=== PATIENT | male | born 1975 | race Caucasian/White ===

== ENCOUNTER → 2016-12-03 | Outpatient (CLI) | payer BC ==
[~2016-12-03] MED LIST: AZIT500T PO; IBUP-1050 PO
--- NOTE | 2016-12-03 12:29 | DIAGNOSTIC IMAGING REPORT ---
RIGHT ANKLE MIN 3 VIEWS ROUTINE CLINICAL HISTORY: Right ankle pain following twisting injury. COMPARISON: None FINDINGS: Alignment of the right ankle is anatomic. There is moderate anterolateral ankle soft tissue swelling. There is no acute fracture. A 1.9 x 0.5 cm calcific density projecting over the proximal plantar fascia is likely chronic. Talar dome is intact. IMPRESSION: 1. No acute fracture or dislocation of the right ankle. 2. Moderate anterolateral ankle soft tissue swelling. 3. 1.9 x 0.5 cm calcific density projecting of the proximal plantar fascia which is chronic. Electronically signed by: Jeremías Pichardo M.D. 12/03/2016 12:27 PM Dictated Date/Time: 12/03/2016 12:26 PM
== END | disposition home or self-care (01) ==
LOC: C.RAD1850 11:49
PROVIDERS: ATTEND Family Medicine
DX: S99.911A Unspecified injury of right ankle, initial encounter (principal); X58.XXXA Exposure to other specified factors, initial encounter; M85.871 Other specified disorders of bone density and structure, right ankle and foot

== ENCOUNTER → 2017-12-29 | Outpatient (CLI) | payer BC ==
--- NOTE | 2017-12-29 09:34 | DIAGNOSTIC IMAGING REPORT ---
ABDOMEN LIMITED (US) HISTORY: Pain. Nodule. ABD PAIN. COMPARISON: None FINDINGS: Ultrasonic evaluation of the abdomen at the site of clinically palpable nodularity comparison. This of a moderately echogenic well-circumscribed mass measuring 3.5 x 1.3 cm. This is consistent with a lipoma. IMPRESSION: Palpable nodularity density appears to represent a 3.5 x 1.3 cm benign lipoma No other mass collection or hernia is identified. Electronically signed by: Jeremiah Dwyer M.D. 12/29/2017 9:32 AM Dictated Date/Time: 12/29/2017 9:30 AM
== END | disposition home or self-care (01) ==
LOC: C.ULTRBC 08:58
PROVIDERS: ATTEND Family Medicine
DX: R10.9 Unspecified abdominal pain (principal); D17.9 Benign lipomatous neoplasm, unspecified

== ENCOUNTER 2018-01-02 14:09 | Emergency (ER) | payer BC ==
[~2018-01-02] VITALS: Ht 182.9 cm; Wt 114.0 kg
[2018-01-02 14:16] VITALS: TEMP 37; Ht 182.9 cm; Wt 114.0 kg
[2018-01-02] MEDS ORDERED: MULT-1027 (14:48)
[2018-01-02] MEDS ORDERED: OPTIRAY 320 IV PRN (15:00)
[2018-01-02 15:09] LABS: BASO % 0.3 %; BASO ABS # 0.02 K/uL (0-0.2); EOS % 2.7 %; EOS ABS # 0.16 K/uL (0-0.5); HEMATOCRIT 42.4 % (42-52); HEMOGLOBIN 14.6 g/dL (14.0-18.0); IG# 0.01 K/uL (0.00-0.02); LYMPH % 15.5 %; LYMPH ABS # 0.93 K/uL (1.2-3.4); MEAN CELL VOLUME 86.4 fL (80-100); MEAN CORPUSCULAR HEMOGLOBIN 29.7 pg (25-34); MEAN CORPUSCULAR HGB CONC 34.4 g/dl (32-36); MONO % 6.8 %; MONO ABS # 0.41 K/uL (0.11-0.59); NEUT % 74.5 %; NEUT ABS # 4.47 K/uL (1.4-6.5); PLATELET COUNT 175 K/uL (130-400); RED CELL DISTRIBUTION WIDTH CV 12.5 % (11.5-14.5); RED CELL DISTRIBUTION WIDTH SD 39.9 fL (36.4-46.3)
[2018-01-02 15:27] LABS: ALBUMIN 4.2 gm/dl (3.4-5.0); CALCIUM 9.1 mg/dl (8.5-10.1); CREATININE 1.04 mg/dl (0.60-1.40); POTASSIUM 3.7 mmol/L (3.5-5.1)
[2018-01-02 15:30] LABS: TOTAL PROTEIN 7.3 gm/dl (6.4-8.2)
--- NOTE | 2018-01-02 18:01 | DIAGNOSTIC IMAGING REPORT ---
ABDOMEN AND PELVIS CT WITH IV AND ORAL CONTRAST CT DOSE: 841.84 mGy.cm HISTORY: Acute right-sided abdominal pain right sided pain eval for colitis/appe TECHNIQUE: Multiaxial CT images of the abdomen and pelvis were performed following the use of intravenous and oral contrast. A dose lowering technique was utilized adhering to the principles of ALARA. COMPARISON STUDY: CT abdomen and pelvis 09/08/2012. FINDINGS: 5 mm pleural-based nodule of the posterior basal segment left lower lobe is noted with mild retraction of the subpleural fat. Minimal subsegmental bibasilar atelectasis. No pneumatosis or pneumoperitoneum. Imaged inferior cardiac chambers are unremarkable. Layering increased attenuation within the gallbladder lumen is noted without CT evidence of acute cholecystitis. Spleen is mildly enlarged, 15 cm. Liver, pancreas and adrenal glands are within normal limits. 7 mm low attenuating lesion of the interpolar left kidney suggests renal cyst. No renal calculi or obstructive uropathy. Ureters and prostate are unremarkable. Urinary bladder is within normal limits. Aorta is unremarkable. No bulky adenopathy. No bowel obstruction or focal bowel wall thickening. The appendix appears normal. Soft tissues are within normal limits. Bones appear intact. Multilevel endplate spurring of the thoracic spine. IMPRESSION: 1. No acute intra-abdominal or intrapelvic abnormality identified. Normal appendix. 2. Layering hyperattenuating foci within the gallbladder lumen suggest gallbladder sludge or cholelithiasis. No CT evidence of acute cholecystitis. 3. Mild splenomegaly. Electronically signed by: Lucien Borges M.D. 01/02/2018 5:59 PM Dictated Date/Time: 01/02/2018 5:55 PM
--- NOTE | 2018-01-02 18:16 | EMERGENCY ROOM VISIT NOTE ---
History Report prepared by Loki: Radha Becerra Under the Supervision of: Dr. Juanjo Gomez M.D. First contact with patient: 14:19 Chief Complaint: ABDOMINAL PAIN Stated Complaint: SIDE PAIN IN BELLY History of Present Illness The patient is a 42 year old male who presents to the Emergency Room with complaints of intermittent right sided abdominal pain starting 3 weeks ago. The pain first started 3 weeks ago and resolved after a couple days. The pain came back 1 week ago. He went to see his PCP 5 days ago and had an ultrasound, blood work, and stool sample. The blood work and ultrasound were OK, but the stool had some blood. He went to the walk in clinic today. He notes that he is anxious about his symptoms, especially since his [id number] yesterday. He had his urine checked today which did not show any blood. They recommended he schedule a colonoscopy and CT scan. The pain is in the right side of his abdomen and goes through to his back. He describes it as mild and feeling like a pulled muscle. He sometimes has a more intense pain with moving in a certain position. He is feeling bloated. He had a fever of 99 today at the clinic. He is having some diarrhea, but notes that he often has abnormal bowel movements. He notes that his father had similar bowel issues. He denies any vomiting. He denies having any medical problems. He denies any recent change in diet. Source of History: patient Onset: 3 weeks ago Position: abdomen (right) Symptom Intensity: mild Quality: other (like a pulled muscle) Timing: intermittent Modifying Factors (Worsening): other (certain movements) Associated Symptoms: + fevers (99), + diarrhea, No vomiting Review of Systems See HPI for pertinent positives & negatives. A total of 10 systems reviewed and were otherwise negative. Past Medical & Surgical Medical Problems: (1) No Known Active Medical Problems Family History No pertinent family history stated. Social History Smoking Status: Former Smoker Marital Status: Current/Historical Medications Miscellaneous Medications Multiple Vitamin (Multi Vitamin) Allergies Coded Allergies: No Known Allergies (Unverified , 01/02/18) Physical Exam Vital Signs Date Time Temp Pulse Resp B/P (MAP) Pulse Ox O2 Delivery O2 Flow Rate FiO2 01/02/18 18:03 89 18 98 Room Air 01/02/18 16:22 70 16 141/100 98 Room Air 01/02/18 14:16 37.0 77 18 163/106 98 Room Air Physical Exam Constitutional: Vital signs reviewed. Eyes: Pupils are equal round reactive to light. Conjunctiva are noninjected. ENT: Pharynx is clear without erythema or exudate. Mucous membranes are moist. Neck supple without meningeal signs. Respiratory: Clear to auscultation bilaterally. Breath sounds are equal bilaterally. Cardiovascular: Regular rate and rhythm. No rubs or gallops. GI: Soft, nondistended and nontender. Bowel sounds are present. Nontender lipoma in the right abdomen. Musculoskeletal: No peripheral edema. No CVA tenderness. Integumentary: No cyanosis. Neurological: The patient is awake and alert. No focal deficits. Psychiatric: Slightly anxious. Medical Decision & Procedures ER Provider Diagnostic Interpretation: Radiology results as stated below per my review and the radiologist's interpretation: ABDOMEN AND PELVIS CT WITH IV AND ORAL CONTRAST CT DOSE: 841.84 mGy.cm HISTORY: Acute right-sided abdominal pain right sided pain eval for colitis/appe TECHNIQUE: Multiaxial CT images of the abdomen and pelvis were performed following the use of intravenous and oral contrast. A dose lowering technique was utilized adhering to the principles of ALARA. COMPARISON STUDY: CT abdomen and pelvis 09/08/2012. FINDINGS: 5 mm pleural-based nodule of the posterior basal segment left lower lobe is noted with mild retraction of the subpleural fat. Minimal subsegmental bibasilar atelectasis. No pneumatosis or pneumoperitoneum. Imaged inferior cardiac chambers are unremarkable. Layering increased attenuation within the gallbladder lumen is noted without CT evidence of acute cholecystitis. Spleen is mildly enlarged, 15 cm. Liver, pancreas and adrenal glands are within normal limits. 7 mm low attenuating lesion of the interpolar left kidney suggests renal cyst. No renal calculi or obstructive uropathy. Ureters and prostate are unremarkable. Urinary bladder is within normal limits. Aorta is unremarkable. No bulky adenopathy. No bowel obstruction or focal bowel wall thickening. The appendix appears normal. Soft tissues are within normal limits. Bones appear intact. Multilevel endplate spurring of the thoracic spine. IMPRESSION: 1. No acute intra-abdominal or intrapelvic abnormality identified. Normal appendix. 2. Layering hyperattenuating foci within the gallbladder lumen suggest gallbladder sludge or cholelithiasis. No CT evidence of acute cholecystitis. 3. Mild splenomegaly. Electronically signed by: Lucien Borges M.D. 01/02/2018 5:59 PM Dictated Date/Time: 01/02/2018 5:55 PM Laboratory Results 01/02/18 15:00 Red Blood Count 4.91, Mean Corpuscular Volume 86.4, Mean Corpuscular Hemoglobin 29.7, Mean Corpuscular Hemoglobin Concent 34.4, Mean Platelet Volume 10.0, Neutrophils (%) (Auto) 74.5, Lymphocytes (%) (Auto) 15.5, Monocytes (%) (Auto) 6.8, Eosinophils (%) (Auto) 2.7, Basophils (%) (Auto) 0.3, Neutrophils # (Auto) 4.47, Lymphocytes # (Auto) 0.93, Monocytes # (Auto) 0.41, Eosinophils # (Auto) 0.16, Basophils # (Auto) 0.02 01/02/18 15:00 Test 01/02/18 15:00 01/02/18 15:30 White Blood Count 6.00 K/uL (4.8-10.8) Red Blood Count 4.91 M/uL (4.7-6.1) Hemoglobin 14.6 g/dL (14.0-18.0) Hematocrit 42.4 % (42-52) Mean Corpuscular Volume 86.4 fL (80-100) Mean Corpuscular Hemoglobin 29.7 pg (25-34) Mean Corpuscular Hemoglobin Concent 34.4 g/dl (32-36) Platelet Count 175 K/uL (130-400) Mean Platelet Volume 10.0 fL (7.4-10.4) Neutrophils (%) (Auto) 74.5 % Lymphocytes (%) (Auto) 15.5 % Monocytes (%) (Auto) 6.8 % Eosinophils (%) (Auto) 2.7 % Basophils (%) (Auto) 0.3 % Neutrophils # (Auto) 4.47 K/uL (1.4-6.5) Lymphocytes # (Auto) 0.93 K/uL (1.2-3.4) Monocytes # (Auto) 0.41 K/uL (0.11-0.59) Eosinophils # (Auto) 0.16 K/uL (0-0.5) Basophils # (Auto) 0.02 K/uL (0-0.2) RDW Standard Deviation 39.9 fL (36.4-46.3) RDW Coefficient of Variation 12.5 % (11.5-14.5) Immature Granulocyte % (Auto) 0.2 % Immature Granulocyte # (Auto) 0.01 K/uL (0.00-0.02) Anion Gap 7.0 mmol/L (3-11) Est Creatinine Clear Calc Drug Dose 118.2 ml/min Estimated GFR () 100.7 Estimated GFR (Non- 86.9 BUN/Creatinine Ratio 11.5 (10-20) Calcium Level 9.1 mg/dl (8.5-10.1) Total Bilirubin 0.6 mg/dl (0.2-1) Direct Bilirubin 0.1 mg/dl (0-0.2) Aspartate Amino Transf (AST/SGOT) 19 U/L (15-37) Alanine Aminotransferase (ALT/SGPT) 32 U/L (12-78) Alkaline Phosphatase 58 U/L (45-117) Total Protein 7.3 gm/dl (6.4-8.2) Albumin 4.2 gm/dl (3.4-5.0) Lipase 84 U/L (73-393) Urine Color YELLOW Urine Appearance CLEAR (CLEAR) Urine pH 5.5 (4.5-7.5) Urine Specific Wolf 1.008 (1.000-1.030) Urine Protein NEG (NEG) Urine Glucose (UA) NEG (NEG) Urine Ketones NEG (NEG) Urine Occult Blood NEG (NEG) Urine Nitrite NEG (NEG) Urine Bilirubin NEG (NEG) Urine Urobilinogen NEG (NEG) Urine Leukocyte Esterase NEG (NEG) Laboratory results as reviewed by me. ED Course 1422: The patient was evaluated in room A9B. A complete history and physical exam was performed. 1442: I discussed the patient's case with Dr. Sabillon, [facility] family [facility]. She says that she had ordered a contrast study for tomorrow. 1804: Upon reevaluation, the patient appeared to have improvement of his symptoms. I discussed tonight's findings with him. He will try some dietary modifications and keep pursuing a colonoscopy. He verbalized agreement of the treatment plan. He was discharged home. Medical Decision This is a 42-year-old male who presents with right-sided abdominal pain. Differential diagnosis includes irritable bowel syndrome, abdominal mass, colitis, enteritis, pancreatitis. I did perform a limited focused review of portions of the patient's old chart on the electronic medical record. The patient had an ultrasound of the abdomen on the 2nd which demonstrated 3.9 cm benign lipoma. I did evaluate the patient as noted above. Patient is presenting with right- sided abdominal pain. He currently does not have any abdominal tenderness on examination. He was told that he had guaiac positive stools but has not seen any rectal bleeding himself other than occasionally on the toilet paper. His father has a history of colon cancer and so he was concerned. IV access was established. I did order and personally review the patient's urinalysis as described above. I did order and review the patient's blood work as noted in the electronic medical record. Labs are unremarkable. I did discuss risks and benefits of CT scanning with the patient. I did order a CT of the abdomen and pelvis. I did review the images myself as well as the radiology report as described above. The patient does have what appears to be all bladder sludge or stones but no evidence of cholecystitis. I did discuss the test results with the patient. Patient states that when he had his ultrasound of his abdomen the tech had shown him his gallbladder. The images on the official ultrasound did not show any abdominal images and only images the lipoma. The patient does not have any tenderness on exam. I do not suspect cholecystitis. I did recommend dietary changes and avoiding any fatty or greasy foods with close follow-up with his doctor. I did recommend he go ahead with the colonoscopy given his family history of colon cancer. He was discharged in good condition and given return instructions as outlined below. Medication Reconcilliation Current Medication List: was personally reviewed by me Blood Pressure Screening Patient's blood pressure: Elevated blood pressure Blood pressure disposition: Referred to PCP Consults Time Called: 1430 Consulting Physician: Dr. Sabillon, [facility] Returned Call: [phone] I discussed the patient's case with her. She says that she had ordered a contrast study for tomorrow. Impression Primary Impression: Right sided abdominal pain Additional Impression: Gallbladder sludge Scribe Attestation The scribe's documentation has been prepared under my direct and personally reviewed by me in its entirety. I confirm that the note above accurately reflects all work, treatment, procedures, and medical decision making performed by me. Departure Information Dispostion Home / Self-Care Referrals Ede Jansen M.D. (PCP) Forms Call Back Authorization, HOME CARE DOCUMENTATION FORM, IMPORTANT VISIT INFORMATION Patient Instructions [facility] Additional Instructions You have been examined and treated today on an emergency basis only. This is not a substitute for, or an effort to provide, complete comprehensive medical care. It is impossible to recognize and treat all injuries or illnesses in a single emergency department visit. It is therefore important that you follow up closely with your physician. Call as soon as possible for an appointment. Return for worsening symptoms or if you develop fever, vomiting, black or tarry stools or any other concerning symptoms. Avoid any fatty or greasy foods. Problem Qualifiers
[2018-01-02 18:27] VITALS: BP 161/112; PULSE 63; O2SAT 99
== END 2018-01-02 18:28 | disposition home or self-care (01) ==
LOC: C.EDB 14:10 → C.EDA 18:28
DX: K82.9 Disease of gallbladder, unspecified (principal); Z87.891 Personal history of nicotine dependence